=== PATIENT | male | born 1995 | race Caucasian/White ===

== ENCOUNTER 2017-07-17 20:39 | Emergency (ER) | payer OTHER ==
[2017-07-17] MEDS ORDERED: ONDANSETRON 4 MG/2 ML VIAL IVP ONE (21:00)
[2017-07-17] MEDS ORDERED: NS 500 ML IV ONE (21:00)
[2017-07-17] MEDS ORDERED: NS 1,000 ML IV ONE (21:05)
[2017-07-17] MEDS ORDERED: LORazepam 2 MG/ML INJ IVP ONE (21:20)
--- NOTE | 2017-07-17 21:31 | EDPHY ---
H & P Stated Complaint: N/V/abd pain x3 hours Time Seen by Provider: 07/17/17 21:30 HPI/ROS: HPI: This is a 21-year-old male who presents with Chief Complaint: Nausea, vomiting x3 hours Location:GI Quality: Nausea, vomiting Duration: 3 hr prior to arrival Signs and Symptoms: no fever, + nausea, + vomiting, no hematemesis, no blood in stool, no abdominal bloating, no diarrhea, no back pain, no urinary symptoms, no testicular/groin pain, no indigestion, no chest pain, no shortness of breath Timing: Acute, intermittent episodes Severity: Moderate to severe Context: Patient presents with sudden onset approximately 3 hr prior to arrival of nausea and vomiting approximately 10-20 times. He reports that he has been smoking marijuana daily for the last 2 months. Has not had a cyclical vomiting syndrome episode in close to a year as he had not been smoking marijuana for close to 9 months. Patient denies fever/urinary symptoms/back pain/testicular groin pain. Patient was able to eat and drink normally this morning without any difficulties. Denies any abdominal pain/diarrhea. He does complain of abdominal cramping during emesis. In the past when he visited the emergency room, he reports that Zofran and Ativan helped his symptoms. He had been referred over year ago to follow up with Gastroenterology but never did because he stop smoking marijuana and his symptoms stopped. He has no recent antibiotic use. No recent foreign travel. Traveled to ER via [place]. Modifying Factors: None Comment: ROS: see HPI Constitutional: No fever, no chills, no weight loss Eyes: No blurred vision Respiratory: No shortness of breath, no cough Cardiovascular: No chest pain, no palpitations Gastrointestinal: + nausea, + vomiting, no diarrhea, no hematemesis, no blood in stool Genitourinary: No dysuria, no blood in urine Extremities: No myalgias, no edema Neurologic: No weakness, no numbness Skin: No rashes, no petechiae Hematologic: No bruising, no bleeding MEDICAL/SURGICAL/SOCIAL HISTORY: Medical history: Generally healthy. Does not take any regular medications. Surgical history: Denies Social history: Family history noncontributory. CONSTITUTIONAL: Polite and cooperative, nontoxic-appearing young adult white male, awake and alert, no obvious distress HEENT: Atraumatic and normocephalic, PERRL, EOMI. Nares patent; no rhinorrhea; no nasal mucosal edema. Tympanic membranes clear. Oropharynx clear, no exudate and moist pink mucosa. Airway patent. No lymphadenopathy. No meningismus. Cardiovascular: Normal S1/S2, regular rate, regular rhythm, without murmur rub or gallop. PULMONARY/CHEST: Symmetrical and nontender. Clear to auscultation bilaterally. Good air movement. No accessory muscle usage. ABDOMEN: Soft, nondistended, nontender, no rebound, no guarding, no peritoneal signs, no masses or organomegaly. No CVAT. EXTREMITIES: 2/2 pulses, strength 5/5, no deformities, no clubbing, no cyanosis or edema. NEUROLOGICAL: no focal neuro deficits. GCS 15. SKIN: Warm and dry, no erythema. no rash. Good capillary refill. Source: Patient Exam Limitations: No limitations - Personal History Current Tetanus/Diphtheria Vaccine: Yes - Medical/Surgical History Hx Asthma: No Hx Chronic Respiratory Disease: No Hx Diabetes: No Hx Cardiac Disease: No Hx Renal Disease: No Hx Cirrhosis: No Hx Alcoholism: No Hx HIV/AIDS: No Hx Splenectomy or Spleen Trauma: No Other PMH: denies - Social History Smoking Status: Current every day smoker Constitutional: Initial Vital Signs Temperature (C) 36.7 C 07/17/17 20:42 Heart Rate 66 07/17/17 20:42 Respiratory Rate 18 07/17/17 20:42 Blood Pressure 153/70 H 07/17/17 20:42 O2 Sat (%) 98 07/17/17 20:42 O2 Delivery Mode Room Air Allergies/Adverse Reactions: latex Allergy (Verified 07/17/17 20:43) Home Medications: Medication Instructions Recorded Ondansetron Odt [Zofran Odt 4 mg 4 mg PO Q4 PRN #12 tab 07/17/17 (*)] Promethazine HCl 25 mg PO Q6 PRN #12 tablet 07/17/17 Medical Decision Making ED Course/Re-evaluation: BMP, IV fluids, IV medications ordered Given 1.5 L normal saline, IV Zofran, IV Ativan 2 mg upon arrival Abdomen soft and nontender. Doubt surgical abdomen. Will not proceed with imaging. 2200: Labs reviewed; high normal sodium and anion gap consistent with acute vomiting and mild dehydration. No signs of acute kidney injury. 2230: Reassessed patient. Sleeping soundly for the last 1 hr. Patient reports that he no longer has nausea. P.o. Trial started. Given Zofran prepack to take home as well as prescription for Zofran 1st line and promethazine 2nd line. Gastroenterology referral provided. This patient was seen under the supervision of my secondary supervising physician. I evaluated care for this patient independently. Differential Diagnosis: Differential diagnosis includes but is not limited to small-bowel obstruction, gastroenteritis, cyclical vomiting syndrome, anxiety. - Data Points Laboratory Results: Laboratory Results 07/17/17 21:03 07/17/17 21:03 Sodium 146 mEq/L H mEq/L (135-145) Potassium 4.3 mEq/L mEq/L (3.3-5.0) Chloride 105 mEq/L mEq/L (97-110) Carbon Dioxide 23 mEq/l mEq/l (22-31) Anion Gap 18 mEq/L H mEq/L (8-16) BUN 21 mg/dL mg/dL (7-23) Creatinine 1.1 mg/dL mg/dL (0.7-1.3) Estimated GFR > 60 Glucose 113 mg/dL H mg/dL (70-100) Calcium 10.2 mg/dL mg/dL (8.5-10.4) Medications Given: Discontinued Medications Sodium Chloride (Ns) 500 mls @ 1,000 mls/hr IV EDNOW ONE PRN Reason: Protocol Stop: 07/17/17 21:29 Last Admin: 07/17/17 21:07 Dose: Not Given Sodium Chloride (Ns) 1,000 mls @ 0 mls/hr IV ONCE ONE; Wide Open PRN Reason: Protocol Stop: 07/17/17 21:06 Last Admin: 07/17/17 21:06 Dose: 1,000 mls Lorazepam (Ativan Injection) 2 mg IVP EDNOW ONE Stop: 07/17/17 21:21 Last Admin: 07/17/17 21:27 Dose: 2 mg Ondansetron HCl (Zofran) 4 mg IVP EDNOW ONE Stop: 07/17/17 21:01 Last Admin: 07/17/17 21:06 Dose: 4 mg Departure - Departure Disposition: Home, Routine, Self-Care Clinical Impression: Marijuana user Cyclical vomiting syndrome Qualifiers: Vomiting Intractability: non-intractable Nausea presence: with nausea Qualified Code(s): G43.A0 - Cyclical vomiting, not intractable Condition: Good Instructions: Cyclic Vomiting Syndrome (ED) Additional Instructions: Consume a minimum of 8-10 glasses of water or electrolyte fluid replacement drinks that include Gatorade, Powerade, Pedialyte. Eat a bland diet for the next 48 hours and then slowly advance as tolerated. Take Zofran 1 tab every 4 hours as needed for nausea, vomiting. Take Promethazine 1 tab every 6 hr as needed for nausea vomiting as a second line therapy. Please refrain from using marijuana. Referrals: Ko Slaomon MD [Medical Doctor] - 5-7 days, call for appt. Prescriptions: Ondansetron Odt [Zofran Odt 4 mg (*)] 4 mg PO Q4 PRN #12 tab PRN Reason: Nausea/Vomiting, Use 1st Promethazine HCl 25 mg PO Q6 PRN #12 tablet PRN Reason: Nausea/Vomiting, Use 2nd
[2017-07-17] MEDS ORDERED: ONDANSETRON 4MG PREPACK#2 BTL TAKEHOME ONE (22:35)
[2017-07-18] MEDS ORDERED: ONDANSETRON DISINTEGRATING 4 MG TAB PO ONE (00:08)
[2017-07-18] MEDS ORDERED: PROMETHAZINE HCL 25 MG TAB PO ONE (00:08)
[2017-07-18 00:19] VITALS: BP 124/75
== END 2017-07-18 00:17 | disposition home or self-care (01) ==
DX: G43.A0 Cyclical vomiting, in migraine, not intractable (principal); E86.9 Volume depletion, unspecified; F12.90 Cannabis use, unspecified, uncomplicated; F17.200 Nicotine dependence, unspecified, uncomplicated; Z91.040 Latex allergy status
CPT/HCPCS: 96374; J2060; J2405

== ENCOUNTER 2017-07-19 21:22 | Emergency (ER) | payer OTHER ==
[2017-07-19] MEDS ORDERED: NS 1,000 ML IV ONE ×2 (21:49)
[2017-07-19] MEDS ORDERED: LORazepam 2 MG/ML INJ IVP ONE (21:50)
[2017-07-19] MEDS ORDERED: HALOPERIDOL LACT 5 MG/ML INJ IVP ONE (21:50)
--- NOTE | 2017-07-19 21:54 | EDPHY ---
H & P Time Seen by Provider: 07/19/17 21:33 HPI/ROS: HPI Vomiting, 21-year-old male by private vehicle with his friends. This patient has a history of cannabis hyperemesis syndrome. He has been smoking marijuana daily for at least a couple of months. He was seen in the emergency department here just 2 days before with the same complaint. He reports he had an episode of vomiting yesterday but otherwise felt better. He reports that he started vomiting again this afternoon. He reports multiple episodes of vomiting followed by dry heaving. He has had some associated crampy abdominal discomfort with this. This is typical of his previous episodes. He admits to using marijuana in the last 2 days. ROS: Constitutional: No fever, no chills. No weakness. Respiratory: No cough. No shortness of breath. Cardiac: No chest pain, no palpitations. Gastrointestinal: As above, no diarrhea. Genitourinary: No hematuria. No dysuria or increased frequency with urination. Musculoskeletal: No back pain. No neck pain. No myalgias or arthralgias. Skin: No rashes. Neurological: No headache. No focal weakness or altered sensation. Past medical history: Cyclic vomiting syndrome/cannabis hyperemesis syndrome. Social history: Does not drink alcohol. Here with his friends. Daily marijuana user. Physical Exam: General Appearance: Alert, intermittently dry heaving. This patient is responding to questions appropriately and in full sentences. This patient appears well-hydrated and well-nourished. Eyes: Pupils equal and round no pallor or injection. No lid edema, erythema or injection. Respiratory: There are no retractions, lungs are clear to auscultation with good air movement bilaterally. Cardiovascular: Regular rate and rhythm. No murmur. Gastrointestinal: Abdomen is soft and nontender, no masses, bowel sounds normal. No focal tenderness at McBurney's point. No Malik sign. Neurological: Motor sensory function is grossly intact. Cranial nerves are normal. Gait is normal. Skin: Warm and dry, no rashes. Musculoskeletal: Neck is supple and nontender. Extremities are symmetrical. All joints range without pain or impingement. Psychiatric: No agitation. No depression. Database: EKG: Imaging: Procedures: Emergency department course: Moderately hypertensive. Vital signs otherwise normal. IV placed. He will be started on IV normal saline with 1-2 L to be given over the next hour. He has been taking Zofran at home without relief. He will be given 1 mg of IV Ativan and 2.5 mg of IV Haldol. 10:05 p.m., patient re-evaluated. Starting to feel better after above medications. States he needs to have a bowel movement. Got up to do this. 10:40 p.m., patient feeling much better. Sleeping but easily arousable. Repeat abdominal exam he is soft, nontender nondistended. He is able tolerate oral fluids at this time. He feels comfortable going home and I feel he is safe for discharge. I instructed him not to use marijuana anymore. Follow-up and return to emergency department precautions reviewed with him. All of his questions were answered. He was discharged in good condition with his friends who are driving. Differential Diagnosis: The differential diagnosis on this patient includes but is not limited to cannabinoid hyperemesis syndrome, cyclic vomiting syndrome. Bowel obstruction, other surgical etiology unlikely. This represents a partial list of diagnoses considered. These considerations are based on history, physical exam, past history, reassessment and diagnostic testing. Smoking Status: Current every day smoker Constitutional: Initial Vital Signs Temperature (C) 37.1 C 07/19/17 21:24 Heart Rate 86 07/19/17 21:24 Respiratory Rate 18 07/19/17 21:24 Blood Pressure 168/75 H 07/19/17 21:24 O2 Sat (%) 94 07/19/17 21:24 O2 Delivery Mode Room Air Allergies/Adverse Reactions: latex Allergy (Verified 07/19/17 21:26) Home Medications: Medication Instructions Recorded Ondansetron Odt [Zofran Odt 4 mg 4 mg PO Q4 PRN #12 tab 07/17/17 (*)] Promethazine HCl 25 mg PO Q6 PRN #12 tablet 07/17/17 Medical Decision Making - Data Points Medications Given: Discontinued Medications Haloperidol Lactate (Haldol Injection) 2.5 mg IVP EDNOW ONE Stop: 07/19/17 21:51 Last Admin: 07/19/17 21:59 Dose: 2.5 mg Sodium Chloride (Ns) 1,000 mls @ 0 mls/hr IV EDNOW ONE; Wide Open PRN Reason: Protocol Stop: 07/19/17 21:50 Last Admin: 07/19/17 21:59 Dose: 1,000 mls Sodium Chloride (Ns) 1,000 mls @ 0 mls/hr IV EDNOW ONE; Wide Open PRN Reason: Protocol Stop: 07/19/17 21:50 Last Admin: 07/19/17 21:59 Dose: 1,000 mls Lorazepam (Ativan Injection) 1 mg IVP EDNOW ONE Stop: 07/19/17 21:51 Last Admin: 07/19/17 21:58 Dose: 1 mg Departure - Departure Disposition: Home, Routine, Self-Care Clinical Impression: Vomiting, Cannabis hyperemesis syndrome concurrent with and due to cannabis abuse, Marijuana user, Cyclical vomiting syndrome Condition: Good Instructions: Cyclic Vomiting Syndrome (ED) Additional Instructions: Read and follow provided instructions. Follow-up with your primary care physician in 1-2 days for re-evaluation. Take medication as prescribed for nausea. Return to the emergency department for worsening symptoms or other serious concerns. Referrals: NONE *PRIMARY CARE P,. [Primary Care Provider] - As per Instructions
[2017-07-19 23:45] VITALS: BP 112/79
== END 2017-07-19 23:39 | disposition home or self-care (01) ==
DX: G43.A0 Cyclical vomiting, in migraine, not intractable (principal); F12.188 Cannabis abuse with other cannabis-induced disorder; E86.9 Volume depletion, unspecified; F17.200 Nicotine dependence, unspecified, uncomplicated; Z91.040 Latex allergy status
CPT/HCPCS: 96374; J1630; J2060

== ENCOUNTER 2017-11-10 18:28 | Emergency (ER) | payer OTHER ==
--- NOTE | 2017-11-10 19:04 | EDPHY ---
HPI/HX/ROS/PE/MDM Narrative: CHIEF COMPLAINT: Vomiting HISTORY OF PRESENT ILLNESS: The patient is a 22 y/o male with a several year history of cannabis hyperemesis syndrome (CHS) complaining vomiting, onset at 10:00, 9 hours ago. The patient has been to the emergency department before for CHS and was given Ativan and Haldol which alleviated his symptoms. In the past anti-nausea medications like Zofran have not alleviated his symptoms. Today he smoked marijuana and subsequently began to feel nauseous and vomited. His symptoms would improve for a short period of time after vomiting. He took CBD for his symptoms and denies taking Zofran. He denies history of gallstones or gastritis. Denies taking medications for depression, but stopped taking Prozac as he didn't like how it made him feel. No fever, chills, chest pain, shortness of breath, palpitations, diarrhea, urinary complaints, headache, lightheadedness. REVIEW OF SYSTEMS: Aside from elements discussed in the HPI, a comprehensive 10 system review of systems was reviewed and is negative. PAST MEDICAL HISTORY: Cannabis hyperemesis syndrome, depression SOCIAL HISTORY: Lives in [place], employed at the [employer], single VITAL SIGNS: Reviewed by me GENERAL: Well-developed, well-nourished, dry heaving initially. HEENT: Atraumatic. Eyes: No icterus, no injection. Mouth: moist mucous membranes. No erythema or lesions. Neck: supple with no adenopathy. LUNGS: Clear to auscultation bilaterally, no wheezes, rhonchi or rales. CARDIAC: Regular rate and rhythm, no rubs, murmurs or gallops. ABDOMEN: Soft, no tenderness on examination, nondistended, bowel sounds normal. BACK: No CVA tenderness. EXTREMITIES: No trauma. No edema. Range of motion is normal throughout. NEURO: Alert and oriented, grossly nonfocal. SKIN: Pale, warm and dry, no rash. PSYCHIATRIC: Normal mentation, no agitation. Portions of this note were transcribed by a medical doctor nuclear medicine. I personally performed a history, physical exam, medical decision making, and confirmed accuracy of information the transcribed note. ED Course: The patient is a 22 y/o male with a several year history of cannabis hyperemesis syndrome (CHS) complaining vomiting after smoking marijuana, onset at 10:00, 9 hours ago. With prior ER visits, the patient's symptoms have improved with Ativan and Haldol. On exam the patient is pale but has a benign abdominal exam. 1L IV NS, 2.5mg IV Haldol, and 1mg IV Ativan administered. 2008: Reassessed patient, he is feeling better after medications. I have discharged him home with a pre-pack of Ativan and encouraged him to stop smoking marijuana. Return precautions provided; patient is comfortable with this plan. MDM: Diff dx considered included but not limited to cannabis hyperemesis syndrome, cyclic vomiting, appendicitis, gastritis, bowel obstruction, gastroeneteritis, alcohol or drug poisoning, alcohol or drug withdrawl. - Data Points Laboratory Results: Laboratory Results 11/10/17 19:05 11/10/17 19:05 Medications Given: Discontinued Medications Haloperidol Lactate (Haldol Injection) 2.5 mg IVP EDNOW ONE Stop: 11/10/17 19:15 Last Admin: 11/10/17 19:18 Dose: 2.5 mg Lorazepam (Ativan Injection) 1 mg IVP EDNOW ONE Stop: 11/10/17 19:15 Last Admin: 11/10/17 19:19 Dose: 1 mg Lorazepam (Ativan 1 Mg Prepack#4) 1 btl TAKEHOME EDNOW ONE Stop: 11/10/17 19:51 Last Admin: 11/10/17 20:55 Dose: 1 btl General Time Seen by Provider: 11/10/17 18:56 Initial Vital Signs: Initial Vital Signs Temperature (C) 36.7 C 11/10/17 18:32 Heart Rate 59 L 11/10/17 18:32 Respiratory Rate 16 11/10/17 18:32 Blood Pressure 163/116 H 11/10/17 18:32 O2 Sat (%) 99 11/10/17 18:32 O2 Delivery Mode Room Air Allergies/Adverse Reactions: latex Allergy (Verified 11/10/17 18:31) Departure - Departure Disposition: Home, Routine, Self-Care Clinical Impression: Cannabinoid hyperemesis syndrome Cyclic vomiting syndrome Qualifiers: Vomiting Intractability: non-intractable Nausea presence: with nausea Qualified Code(s): G43.A0 - Cyclical vomiting, not intractable Condition: Good Instructions: Lorazepam (By mouth), Cyclic Vomiting Syndrome (ED) Additional Instructions: I would encourage you to stop smoking marijuana. You been discharged with a prepack of Ativan. You may use this as needed for recurrent nausea and vomiting. Please start with a bland diet and advance as tolerated. Referrals: [facility],. [Clinic] - As per Instructions Report Scribed for: Shayy Joe Report Scribed by: Gris Delarosa Date of Report: 11/10/17 Time of Report: 19:04
[2017-11-10] MEDS ORDERED: LORazepam 2 MG/ML INJ IVP ONE (19:14)
[2017-11-10] MEDS ORDERED: HALOPERIDOL LACT 5 MG/ML INJ IVP ONE (19:14)
[2017-11-10] MEDS ORDERED: LORAZEPAM 1 MG PREPACK#4 BTL TAKEHOME ONE (19:50)
[2017-11-10 19:57] LABS: PLATELET COUNT 251 10^3/uL (150-400)
[2017-11-10 20:44] VITALS: BP 132/103
== END 2017-11-10 21:01 | disposition home or self-care (01) ==
DX: F12.188 Cannabis abuse with other cannabis-induced disorder (principal); G43.A0 Cyclical vomiting, in migraine, not intractable
CPT/HCPCS: 96374; J1630; J2060